=== PATIENT | male | born 1970 | race Caucasian/White ===

== ENCOUNTER → 2017-05-10 | Outpatient (CLI) | payer OTHER ==
[~2017-05-10] MED LIST: ATIVAN PO; B/P; BENTYL20 MG PO; CHOLESTEROL; CITALOPRAM HBR10 MG PO; METOPROLOL SUCC25 MG PO; PHENERGAN25 MG PO; PRILOSEC10 M1 PO; SIMVASTATIN10 MG PO
--- NOTE | ~2017-05-10 | CT2 ---
[facility] A Service of [facility] & [facility] RADIOLOGY TEXT RESULTS PATIENT: CHRIS BLAIR LOCATION: [facility] : 66 UNIT #: [id number] AGE: [address]: Chely Boyd MD SEX: M ORDER DR: [id number] [facility] [address] [place], [place] [address] [id number] O MR#: [id number] Acc #: [id number] NAME: CHRIS BLAIR : 1970 SEX: M STUDY DATE/TIME: 05/10/2017 12:33 UNIT: [facility] ROOM: STUDY DESCRIPTION: CT Abd and Pelv W Cont Attending Physician: Chely Boyd M.D. Referring Physician: Chely Boyd M.D. Ordering Physician: Chely Boyd M.D. Primary Care Physician: Chely Boyd M.D. MEDICAL IMAGING REPORT This report is preliminary unless electronic signature is present EXAM CT abdomen and pelvis with contrast 05/10/2017 12:33 hours HISTORY A 47-year-old man with left lower quadrant pain for 1 year, palpable mass and swelling with diarrhea today. COMPARISON CT abdomen and pelvis 05/14/[address] images were obtained from the lung bases through the pubic symphysis with oral and intravenous contrast. Sagittal and coronal reconstructions were performed. Contrast was Isovue-370 100 mL IV. Total exam DLP 640 mg - cm. This CT exam was performed with one or more of the following radiation dose reduction techniques: automatic exposure control, adjustment of mA and/or kV according to patient size, and iterative reconstruction. FINDINGS Images through the lung bases are clear. The distal esophagus is normal. Images through the abdomen demonstrate a normal appearance to the liver, spleen, pancreas, gallbladder, bile ducts, adrenal glands. The kidneys enhance normally. There is no stone or distension. There is a 2.6 cm simple cyst in the lower pole right kidney measuring only 1 Hounsfield unit on the postcontrast exam. There is no ureterectasis or ureteral calculus. The bladder appears normal. The stomach is only partially opacified and partially distended but appears normal. The small bowel is partially opacified with contrast. [facility] A Service of [facility] & [facility] RADIOLOGY TEXT RESULTS PATIENT: CHRIS BLAIR LOCATION: [facility] : [birth year] UNIT #: [id number] AGE: [address]: Chely Boyd MD SEX: M ORDER DR: There is no small bowel distension or small bowel wall thickening. The cecum sits low in the right lower quadrant. There is no wall thickening. No evidence of appendicitis. The colon is fairly well opacified with contrast throughout. There is no colonic wall thickening or mass is seen. There are a few diverticula at the junction of descending colon and sigmoid colon without CT evidence of acute inflammation. CT pelvis demonstrates a normal appearance to the bladder, prostate and seminal vesicles. No hernias are seen. Bone window images demonstrate mild scoliosis in the lower lumbar spine unchanged. There is no vertebral body fracture or significant degenerative change. IMPRESSION 1. Negative CT scan of the abdomen and pelvis performed with oral and intravenous contrast. 2. There is a benign simple cyst in the lower pole right kidney now 2.6 cm previously 2.3 cm in 2012. 3. There is scattered colonic diverticula without evidence of wall thickening or mass. 4. No ventral or inguinal hernia is seen. Dictated by... Damaris Jacobson M.D. THIS IS AN ELECTRONICALLY VERIFIED REPORT Damaris Jacobson M.D. at 05/11/2017 12:32 PM Pam TD: 05/11/2017 02:09 JOB #: [id number] MEDICAL IMAGING REPORT Page 1 of 1 COPY
[2017-05-10 11:51] LABS: POC - CREATININE 0.78 mg/dL (0.64-1.27); POC - GFR >60.0 mL/min (>60)
== END | disposition home or self-care (01) ==
LOC: CCAT 11:01
PROVIDERS: Family Medicine
DX: R10.9 Unspecified abdominal pain (principal); N28.1 Cyst of kidney, acquired; K57.30 Diverticulosis of large intestine without perforation or abscess without bleeding
CPT/HCPCS: 74177; 82565; Q9967

== ENCOUNTER → 2017-05-23 | Outpatient (CLI) | payer OTHER ==
--- NOTE | ~2017-05-23 | US77 ---
[facility] A Service of [facility] & [facility] RADIOLOGY TEXT RESULTS PATIENT: CHRIS BLAIR LOCATION: [facility] : 66 UNIT #: [id number] AGE: [address]: Chely Boyd MD SEX: M ORDER DR: [id number] [facility] [address]. [place], [place] [address] [id number] O MR#: [id number] Acc #: [id number] NAME: CHRIS BLAIR : 1970 SEX: M STUDY DATE/TIME: 05/23/2017 12:09 UNIT: [facility] ROOM: STUDY DESCRIPTION: US Kidney Bilateral Complete Attending Physician: Chely Boyd M.D. Referring Physician: Chely Boyd M.D. Ordering Physician: Chely Boyd M.D. Primary Care Physician: Chely Boyd M.D. MEDICAL IMAGING REPORT This report is preliminary unless electronic signature is present Exam Renal ultrasound INDICATIONS Right renal cysts. This was identified on CT performed May 10, 2017. TECHNIQUE Manriquez-scale and color Doppler sonographic images were obtained through the kidneys and bladder. FINDINGS The patient has a right renal cyst measuring 2.4 x 2.0 x 3.6 cm. There is no hydronephrosis identified. No definite solid renal masses are seen. Urinary bladder appears normal. Left kidney is normal in appearance with no solid or cystic renal masses seen and no hydronephrosis identified. IMPRESSION Right renal cyst measuring 2.4 x 2.2 x 3.6 cm Dictated by... Sofía Garcia M.D. THIS IS AN ELECTRONICALLY VERIFIED REPORT Sofía Garcia M.D. at 05/26/2017 1:05 PM AFF/to TD: 05/24/2017 20:51 JOB #: [id number] MEDICAL IMAGING REPORT Page 1 of 1 COPY
== END | disposition home or self-care (01) ==
LOC: CGUS 11:45
DX: N28.1 Cyst of kidney, acquired (principal)
CPT/HCPCS: 76770